=== PATIENT | female | born 1985 | race Hispanic/Latino ===

== ENCOUNTER 2016-09-30 09:37 | Emergency (ER) | payer OTHER ==
[~2016-09-30] VITALS: Ht 167.6 cm; Wt 63.5 kg
[~2016-09-30 09:37] MED LIST: FERROUS SULFAT325 M1 PO; IBUPROFEN800 MG PO; PERCOCET 325 MG1 TA2 PO
[2016-09-30 10:55] LABS: ABSOLUTE BASOPHIL COUNT 0 /CUMM (0.0-0.2); ABSOLUTE EOSINOPHIL COUNT 0.1 /CUMM (0.0-0.7); ABSOLUTE GRANULOCYTE CT 5.3 /CUMM (1.4-6.5); ABSOLUTE LYMPH COUNT 1.2 /CUMM (1.2-3.4); ABSOLUTE MONOCYTE COUNT 0.9 /CUMM (0.10-0.60); BASOPHIL % 0.5 % (0.0-2.0); EOSINOPHIL % 1.1 % (0-5); GRANULOCYTE % 71.4 % (42.2-75.2); HEMATOCRIT 38.3 % (37-47); MEAN CORPUSCULAR HGB 31.6 PG (27.0-31.0); MEAN CORPUSCULAR VOLUME 92.8 FL (81.0-99.0); MEAN PLATELET VOLUME 7.8 FL (7.4-10.4); PLATELET COUNT 327 /CUMM (130-400); RBC DISTRIBUTION WIDTH 12.3 % (11.5-14.5); RED BLOOD CELL CT 4.13 /CUMM (4.20-5.40); WHITE BLOOD CELL COUNT 7.4 /CUMM (4.8-10.8)
--- NOTE | 2016-09-30 11:44 | ED GI/GU/ABDOMINAL COMPLAINT ---
History of Present Illness General Chief Complaint: Abdominal Pain/Flank Pain Stated Complaint: 6 WEEKS PREG HEAVY BLEEDING SINVE LAST NIGHT Source: patient Exam Limitations: no limitations Vital Signs & Intake/Output Vital Signs & Intake/Output Vital Signs Date Time Temp Pulse Resp B/P Pulse O2 O2 Flow FiO2 Ox Delivery Rate 09/30 1335 98.3 80 15 107/60 99 Room Air Room Air 09/30 1301 97.8 86 18 104/58 99 Room Air 09/30 1150 Room Air Room Air 09/30 0943 96.9 83 20 135/79 99 Room Air Allergies Coded Allergies: NO KNOWN ALLERGIES (08/17/12) Reconcile Medications Ferrous Sulfate 325 MG TAB 325 MG PO BID ANEMIA Ibuprofen 800 MG TABLET 800 MG PO Q6P PRN PAIN SCALE 4-6 OXYCODONE HCL/ACETAMINOPHEN (Percocet 5-325 MG Tablet) 325 MG/5 MG TAB 2 TAB PO Q4P PRN PAIN SCALE 9-10 Triage Note: PT PRESENTS TO ER STATING SHE IS APPROX 6 WEEKS AND LAST NIGHT SHE STARTED HAVING VAGINAL BLEEDING WHEN URINATING. PT STATES SHE ONLY HAS THE BLEEDING WHEN SHE URINATES. PT DENIES ABDOMINAL PAIN Triage Nurses Notes Reviewed? yes ? Y Is pt currently ? No HPI: 31 yo female w 2 miscarriages w co vaginal bleeding since last night after intercourse. woke this morning, small amount of bleeding after going to the bathroom this morning. she has no abd pain or pelvic pain, no vaginal discharge , no back pain, no nv. LMP was 08/22, + home preg test, has not seen obgyn yet. (DAYRON LINDA) Past History Travel History Traveled to [place] past 21 day No Medical History Any Pertinent Medical History? 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 No (DAYRON LINDA) Review of Systems Review of Systems Constitutional: Reports: see HPI. EENTM: Reports: no symptoms. Respiratory: Reports: no symptoms. Cardiovascular: Reports: no symptoms. GI: Reports: no symptoms. Genitourinary: Reports: see HPI. Musculoskeletal: Reports: no symptoms. Skin: Reports: no symptoms. Neurological/Psychological: Reports: no symptoms. Hematologic/Endocrine: Reports: no symptoms. Immunologic/Allergic: Reports: no symptoms. All Other Systems: Reviewed and Negative (DAYRON LINDA) Physical Exam Physical Exam Gastrointestinal: normal bowel sounds, soft, non-tender, no organomegaly Comments: Well-developed well-nourished no apparent distress. HEENT: Atraumatic, extraocular motion intact Neck: Supple, no lymphadenopathy Back: Nontender, no cvs tenderness. Respiratory: No respiratory distress Extremities: No edema, full range of motion Neuro: Alert and oriented x3 Psych: Mood affect normal, normal memory normal judgment. Skin: Warm and dry, no rash on exposed skin Core Measures ACS in differential dx? No Severe Sepsis Present: No Septic Shock Present: No (DAYRON LINDA) Progress Differential Diagnosis: AAA, AMI, appendicitis, biliary colic, bowel obstruction , colon cancer, cholecystitis, diverticulitis, ectopic , endometritis, esophageal varices, gastritis, hepatitis, hernia, hemorrhoids, ischemic bowel, inflamm bowel dis, intrauterine , kidney stone, Elayne-Marco A tear, ovarian cyst, ovarian torsion, pancreatitis, PID/cervicitis, peptic ulcer, PUD/ GERD, perforated viscous, SBO, threatened AB, UTI/pyelo Plan of Care: Orders Procedure Date/time Status BLOOD PRODUCT PICKUP 09/30 1304 Active RHO D IMMUNE GLOBULIN - 300MCG 09/30 1040 Complete HUMAN BETA HCG TITRE 09/30 1016 Complete COMPREHENSIVE METABOLIC PANEL 09/30 1016 Complete CBC WITHOUT DIFFERENTIAL 09/30 1016 Complete RHOGAM WORK-UP 09/30 1016 Complete Laboratory Tests 09/30/16 1040: Anion Gap 9, Estimated GFR > 60, BUN/Creatinine Ratio 16.0, Glucose 86, Calcium 9.4, Total Bilirubin 0.9, AST 21, ALT 42, Alkaline Phosphatase 62, Total Protein 7.2, Albumin 4.1, Globulin 3.1, Albumin/Globulin Ratio 1.3, Beta HCG, Quant 542.3, CBC w Diff NO MAN DIFF REQ, RBC 4.13 L, MCV 92.8, MCH 31.6 H, RDW 12.3, MPV 7.8, Gran % 71.4, Lymphocytes % 15.5 L, Monocytes % 11.5 H, Eosinophils % 1.1, Basophils % 0.5, Absolute Granulocytes 5.3, Absolute Lymphocytes 1.2, Absolute Monocytes 0.9 H, Absolute Eosinophils 0.1, Absolute Basophils 0, PUBS MCHC 34.0 Initial ED EKG: none Comments: Beta-hCGs only 540, discussed with patient that this may be low considering she is supposed be 5- 6 weeks . I'm concerned about a miscarriage and have discussed the case with DIE OPERATOR office, TERRI orosco and attending ER physician Dr. Tucker. Discussed with patient, likely ultrasound would not add much value, I doubt she is having an ectopic without any pain. She will require follow-up with DIE OPERATOR this week and repeat blood testing in 2 days' time to ensure b hCG is rising. She is given an injection of rhogam today as she is Rh- . Recommend rest, pelvic rest, avoid strenuous activity or heavy lifting and following up with DIE OPERATOR calling tomorrow. (DAYRON LINDA) Departure Departure Disposition: HOME OR SELF CARE Condition: Stable Clinical Impression Primary Impression: Threatened Secondary Impressions: Vaginal bleeding Referrals: DM[facility] RAPP PATIENT HAS NO PRIMARY CARE DR (PCP/Family) Additional Instructions: Call your DIE OPERATOR office tomorrow as you will need blood tests on Saturday and follow-up this week. Avoid any physical activity or strenuous activity today. Drink plenty of water. Return with large amounts of vaginal bleeding using more than 1 pad per hour, pelvic pain, nausea vomiting or fever. You received an injection of RHOGAM in the emergency department today for the possibility of having a miscarriage Departure Forms: Customer Survey General Discharge Information (DAYRON LINDA) PA/HOSPICE VOLUNTEER Co-Sign Statement Statement: ED Attending supervision documentation- x I saw and evaluated the patient. I have also reviewed all the pertinent lab results and diagnostic results. I agree with the findings and the plan of care as documented in the PA's/HOSPICE VOLUNTEER's documentation. [] I have reviewed the ED Record and agree with the PA's/HOSPICE VOLUNTEER's documentation. [] Additions or exceptions (if any) to the PAs/HOSPICE VOLUNTEER's note and plan are summarized below: [] (GABRIELE ROBERTO,LINDSEY)
[2016-09-30 13:35] VITALS: BP 107/60
== END 2016-09-30 13:49 ==
LOC: ERH 09:37
PROVIDERS: Physician Assistant Surgical
DX: O20.0 Threatened abortion (principal); Z3A.00 Weeks of gestation of pregnancy not specified
CPT/HCPCS: 96372; J2790

== ENCOUNTER → 2016-12-26 | Day surgery (SDC) | payer OTHER ==
--- NOTE | 2016-12-26 13:50 | Operative Report ---
Operative/Inv Procedure Report Surgery Date: 12/26/16 Name of Procedure: Removal of laminaria, exam under anesthesia, cervical dilation and suction and sharp curettage Pre-Operative Diagnosis: Missed AB Post-Operative Diagnosis: Same Estimated Blood Loss: less than 50ml Surgeon/Pediatric Physical Therapist: DANYEL SOLIS MD Anesthesia: local monitored anesthesi Monitors: EKG electrodes pulse oximeter blood pressure cuff IV Fluids: 750 ML crystalloid Implants: None Urine Output: No catheterization no urine measured Drains: None Specimens: Products of conception sent fresh to the lab for genetic analysis Microbiology: None Tourniquet: None Complications: None Condition: Good Operative Indication: Missed AB as diagnosed by office ultrasound. Patient was 7+ weeks by dates crown-rump length on ultrasound was only 6 weeks several days with no evidence of any cardiac activity. Patient declined medical induction of miscarriage and planned for on suction and sharp curettage. Laminaria was placed in the patient 's cervix yesterday as an outpatient visit in the office. Patient has not had any interim bleeding or spotting Operative/Procedure Note Note: Patient was brought to the operating room and placed on the OR table in a dorsal supine position. Timeout was discussed by the team and agreed upon. Patient had been given a single oral dose of doxycycline antibiotic preoperatively. Patient was given IV sedation. After adequate IV sedation she was placed in the dorsal lithotomy position with pneumatic compression boots on her lower extremities, utilizing candycane stirrups. Patient was then prepped and draped usual sterile fashion. As part of the prep the vaginal folded 4 x 4 and intracervical laminaria that were previously placed in the patient's cervix and vagina yesterday in the office, were both removed. Exam under anesthesia showed a 7 week size uterus. Speculum was then placed in the vagina, and the cervix was visualized. Single-tooth tenaculum placed on the anterior lip of cervix. Cervix was found to be open to a #10 Hegar dilator. Utilizing a #9 curved curet this was passed through the endocervical canal into the uterine cavity. Suction was applied. Two thirds of the products of conception was quickly removed with initial pass of the curette. Sharp curettage was performed. Suction curet was passed to the endocervical canal into the uterine cavity 2 more times to complete adequate removal of products of conception. Final sharp curettage showed no retained significant tissue and continued good hemostasis. Specimen of products of conception was sent to the lab as a fresh specimen for genetic analysis. All instruments removed from the vagina sponge instrument Telfa counts were correct 2. Postprocedure uterus was now 5-6 week sized symmetric anteverted. Excellent hemostasis at completion of the procedure. In the OR patient was given IV Pitocin and IM Methergine 1. Patient was awakened from anesthesia and taken to recovery room in good condition. Patient is Rh-, so therefore this patient will receive RhoGAM postoperatively. She is due for one more dose of oral doxycycline postoperatively also, which will be given in the post anesthesia area. Findings: Preop exam showed a 7 week size uterus. Laminaria successfully had dilated the cervix to a #10 Hegar dilator. A #9 curved suction curette was utilized for the procedure. Dissection and sharp curettage was performed. Adequate removal of products of conception without any significant residual tissue. Proximal of conception sent to the lab as a fresh specimen for genetic analysis. Patient is Rh- and will receive RhoGAM post procedure. Uterus was 5-6 weeks size post procedure. Patient received pre-and post op dosage of oral doxycycline for antibiotic prophylaxis. Discharge Disposition: Same Day Admissions CC: JOAQUIN ROBERTO,DAYRON Zaragoza
== END ==
LOC: STS 07:00
DX: O02.1 Missed abortion (principal)
CPT/HCPCS: 88261; 88305; J2210; J2250; J2790

== ENCOUNTER 2018-05-26 21:11 | Emergency (ER) | payer OTHER ==
[~2018-05-26] VITALS: Ht 167.6 cm; Wt 71.7 kg
[2018-05-26 21:18] VITALS: BP 133/82
[2018-05-26 21:54] LABS: ABSOLUTE BASOPHIL COUNT 0.1 /CUMM (0.0-0.2); ABSOLUTE EOSINOPHIL COUNT 0.4 /CUMM (0.0-0.7); ABSOLUTE GRANULOCYTE CT 6.4 /CUMM (1.4-6.5); ABSOLUTE LYMPH COUNT 1.9 /CUMM (1.2-3.4); ABSOLUTE MONOCYTE COUNT 0.8 /CUMM (0.10-0.60); EOSINOPHIL % 4.2 % (0-5); GRANULOCYTE % 66.5 % (42.2-75.2); HEMATOCRIT 41.3 % (37-47); MEAN CORPUSCULAR HGB 31.2 PG (27.0-31.0); MEAN CORPUSCULAR HGB CONC 33.4 G/DL (33.0-37.0); MEAN CORPUSCULAR VOLUME 93.4 FL (81.0-99.0); MEAN PLATELET VOLUME 7.6 FL (7.4-10.4); PLATELET COUNT 427 /CUMM (130-400); RBC DISTRIBUTION WIDTH 13.2 % (11.5-14.5); RED BLOOD CELL CT 4.43 /CUMM (4.20-5.40); WHITE BLOOD CELL COUNT 9.6 /CUMM (4.8-10.8)
[2018-05-26 22:03] LABS: PT 12.1 SEC (9.4-12.5); PTT 31 SEC (25-37)
--- NOTE | 2018-05-27 00:29 | ED GENERAL ADULT ---
History of Present Illness General Chief Complaint: Female Urogenital Problems Stated Complaint: 9WKS PREG, BLEEDING AND CRAMPING JUST STARTED Source: patient, family Exam Limitations: no limitations Vital Signs & Intake/Output Vital Signs & Intake/Output Vital Signs Date Time Temp Pulse Resp B/P B/P Pulse O2 O2 Flow FiO2 Mean Ox Delivery Rate 05/26 2118 98.3 74 18 133/82 100 Room Air ED Intake and Output 05/27 0000 05/26 1200 Intake Total Output Total Balance Patient 71.668 kg Weight Allergies Coded Allergies: NO KNOWN ALLERGIES (NONE 02/04/18) Reconcile Medications Ferrous Sulfate 325 MG TAB 325 MG PO BID ANEMIA Ibuprofen 800 MG TABLET 800 MG PO Q6P PRN PAIN SCALE 4-6 OXYCODONE HCL/ACETAMINOPHEN (Percocet 5-325 MG Tablet) 325 MG/5 MG TAB 2 TAB PO Q4P PRN PAIN SCALE 9-10 Triage Note: PT TO TRIAGE 9 WEEKS PREG G5,P3. HX OF MISCARRIAGE, REPORTING +VAGINAL BLEEDING TONIGHT S/P OBGYN APPT AT [facility] IN [place]. PT DENIES CRAMPING, DENIES PAIN. 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 Triage Nurses Notes Reviewed? yes : Yes Patient currently breastfeeds: No HPI: 33-year-old woman with past medical history of recurrent spontaneous and unknown coagulopathy seen for evaluation of vaginal bleeding and passage of clots. Patient reports that she was seen by her LOADING AND UNLOADING SUPERVISOR at the [facility] today for her initial evaluation of her 9 week where a transvaginal ultrasound demonstrated viability. Patient returned home after the visit and was showering this evening when she noticed passage of bright red blood from her vagina with clots and possible material. For fear of recurrent miscarriage she came to the [place] ED for evaluation. Presently she admits to worrying about her child but otherwise states that she feels fine. She denies any fever, chills, chest pain, shortness of breath, or abdominal pain. Past History Travel History Traveled to [place] past 21 day No Medical History Any Pertinent Medical History? 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 No Review of Systems Review of Systems Constitutional: Reports: see HPI. Physical Exam Physical Exam General Appearance: well developed/nourished, no apparent distress, alert, awake , comfortable Comments: General - well developed, well nourished young woman in no acute distress HEENT - NCAT, PERRL, EOMI, anicteric sclera Neck- Supple, no JVD/HJR, no bruits, trachea midline Cardio - S1, S2 w/o murmurs/gallops/rubs; regular rate and rhythm Resp - Clear to auscultation bilaterally GI - Soft, nontender, nondistended, bowel sounds present Genitourinary-normal appearing external female genitalia, open cervical loss with surrounding bright red blood without obvious visualization of material Neuro - Awake and alert, CN II - XII grossly intact Extremities - No edema, pulses intact Core Measures ACS in differential dx? No CVA/TIA Diagnosis: No Sepsis Present: No Sepsis Focused Exam Completed? No Progress Differential Diagnoses I considered the following diagnoses in my evaluation of the patient: Spontaneous , ovarian torsion, ectopic , uterine/cervical injury Plan of Care: Orders Procedure Date/time Status US- VIABILITY 05/27 UNK Active PARTIAL THROMBOPLASTIN TIME 05/26 2117 Complete PROTHROMBIN TIME 05/26 2117 Complete HUMAN BETA HCG TITRE 05/26 2117 Complete COMPREHENSIVE METABOLIC PANEL 05/26 2117 Complete CBC WITHOUT DIFFERENTIAL 05/26 2117 Complete TYPE & SCREEN (NOT X-MATCH) 05/26 2117 Complete Laboratory Tests 05/26/184: Anion Gap 9, Estimated GFR > 60, BUN/Creatinine Ratio 20.0, Glucose 91, Calcium 10.2, Total Bilirubin 0.3, AST 20, ALT 24, Alkaline Phosphatase 55, Total Protein 7.6, Albumin 4.4, Globulin 3.2, Albumin/Globulin Ratio 1.4, Beta HCG, Quant 354270.0, PT 12.1, INR 1.11, APTT 31, CBC w Diff NO MAN DIFF REQ, RBC 4.43 , MCV 93.4, MCH 31.2 H, MCHC 33.4, RDW 13.2, MPV 7.6, Gran % 66.5, Lymphocytes % 20.0 L, Monocytes % 8.3, Eosinophils % 4.2, Basophils % 1.0, Absolute Granulocytes 6.4, Absolute Lymphocytes 1.9, Absolute Monocytes 0.8 H, Absolute Eosinophils 0.4, Absolute Basophils 0.1 Initial ED EKG: none Comments: Young woman with extensive gynecologic history including recurrent miscarriages seen for evaluation of vaginal bleeding and passage of material. Vital signs remain within normal limits. Labs including CBC and conference of metabolic panel remain within normal limits. Physical examination demonstrates an anxious appearing young woman with an open cervical loss without obvious retained components. Quantitative serum hCG is elevated and correlates with . Clinically patient appears to have had recurrent spontaneous . Patient does not want to stay for a viability ultrasound study. Patient is encouraged to follow-up with her LOADING AND UNLOADING SUPERVISOR tomorrow for further evaluation or to return to the ED. Patient left without signing discharge paperwork. Departure Departure Disposition: HOME OR SELF CARE Condition: Stable Clinical Impression Primary Impression: Vaginal bleeding affecting early Referrals: Patient Has No Primary Care Dr (PCP/Family) Additional Instructions: Follow-up with your LOADING AND UNLOADING SUPERVISOR tomorrow-tell them of your ED visit. You may require a pelvic ultrasound to assess for viability of the fetus. Return to the ED should your symptoms worsen or if you develop severe abdominal pain or signs of infection. Departure Forms: Customer Survey General Discharge Information Critical Care Note Critical Care Note Critical Care Time: non-applicable
== END 2018-05-27 01:51 ==
LOC: ERH 21:11
PROVIDERS: Physician Assistant Medical
DX: O20.9 Hemorrhage in early pregnancy, unspecified (principal); Z3A.09 9 weeks gestation of pregnancy